=== PATIENT | female | born 1965 | race Caucasian/White ===

== ENCOUNTER → 2016-10-30 | Day surgery (SDC) | payer OTHER ==
[~2016-10-30] MED LIST: BIOTIN PO; CHOLESTEROL MA600 MG PO; LEVOTHYROXINE PO; PROBIOTIC1 EAC1 PO; PROTONIX PO
--- NOTE | ~2016-10-30 | OR ---
Unit #: [id number] #: [id number] Patient: SHARON GIBBONS [id number] [address] [address] [id number] O MR#: [id number] NAME: SHARON GIBBONS ROOM: Date of Procedure: 10/30/2016 Admission Date: 10/30/2016 Surgeon: Otto Collazo M.D. : 1965 Attending Physician: Otto Collazo M.D. Referring Physician: Otto Collazo M.D. Primary Care Physician: Joaquim Scott M.D. OPERATIVE REPORT PRIMARY CARE PHYSICIAN Joaquim Scott M.D. PREOPERATIVE DIAGNOSES Colorectal cancer screening in an average-risk patient. The patient has never had any colonoscopy in the past. There is no family history of colon cancer. PROCEDURES PERFORMED 1. Colonoscopy and polypectomy. 2. Colonoscopy and directed submucosal injection. POSTOPERATIVE DIAGNOSES 1. The patient had a large sessile polyp in the proximal to mid ascending colon. This was about 3 cm in size. The overall appearance is that of a serrated adenoma. It was removed using snare cautery polypectomy after submucosal injection of methylcellulose and methylene blue. Excellent hemostasis was achieved postprocedure. 2. A smaller diminutive polyp in the splenic flexure which was ablated using the snare cautery tip and was fulgurated. 3. Mild sigmoid and descending colon diverticulosis. 4. Rest of the examination up to cecum and terminal ileum was normal. The quality of the prep was excellent. RECOMMENDATIONS 1. Follow up the results of polyp histology. 2. Consider repeat examination of the colon in 3 years. SEDATION USED MAC. DESCRIPTION OF PROCEDURE Following detailed explanation of potential risks and complications of a colonoscopy, namely perforation, bleeding, and complications related to sedation, the patient was brought to GI lab and laid in the left lateral decubitus position. A digital rectal examination was performed, which was normal. Lubricated tip of the Olympus video colonoscope was inserted through the anus and advanced under direct vision. The scope was advanced past rectosigmoid into descending colon. Multiple medium-sized diverticula were noted in this area. The scope tip was then navigated all the way up to cecum with visualization of the ileocecal valve and the appendiceal orifice. Preparation was excellent with good visualization Unit #: [id number] #: [id number] Patient: SHARON GIBBONS and photodocumentation was obtained. Successive segments of the colonic mucosa were examined upon withdrawal. A large sessile polyp was noted in the proximal to mid ascending colon. It was about 3 cm in size and had classic appearance of a serrated adenoma. It was removed using snare cautery polypectomy after injection of the polyp base with methylcellulose and methylene blue mixture. Excellent hemostasis was achieved and total polypectomy was done in one go. Photodocumentation was obtained. A second diminutive polyp was seen in the splenic flexure which was fulgurated using snare cautery tip. Other than the left-sided diverticula, no other abnormalities were noted. The patient did not have any hemorrhoids at the anal verge. The scope was then withdrawn and the patient returned to the recovery area. She tolerated the procedure without any postprocedure complications. Dictated by... Jarod Orozco/andrei TD: 10/30/2016 13:26 JOB #: [id number] CC: Joaquim Scott M.D. OPERATIVE REPORT Page 1 of 1 X Otto Collazo MD X PROCEDURE OPERATIVE NOTE
== END | disposition home or self-care (01) ==
LOC: COPS 08-31 09:30
DX: Z12.11 Encounter for screening for malignant neoplasm of colon (principal); D12.2 Benign neoplasm of ascending colon; K57.30 Diverticulosis of large intestine without perforation or abscess without bleeding; K21.9 Gastro-esophageal reflux disease without esophagitis; E03.9 Hypothyroidism, unspecified; F17.210 Nicotine dependence, cigarettes, uncomplicated; Z88.0 Allergy status to penicillin; Z79.899 Other long term (current) drug therapy; Z90.49 Acquired absence of other specified parts of digestive tract
CPT/HCPCS: 88305; J2250; Q9968